=== PATIENT | male | born 1965 | race Caucasian/White ===

== ENCOUNTER 2020-11-09 16:38 | Inpatient (IN) | payer BC, MEDICARE ==
[~2020-11-09] VITALS: Ht 182.9 cm; Wt 106.7 kg
[~2020-11-09 16:38] MED LIST: ACET300T4; BACL10TA PO; GABA300C; MORP60TA
[2020-11-09] MEDS ORDERED: MORPHINE SULFATE 4 MG/ML SYR/VIAL IV ONE (17:00)
[2020-11-09] MEDS ORDERED: ONDANSETRON HCL 4 MG/2 ML VIAL IV ONE (17:00)
[2020-11-09 18:04] LABS: Basophils # (auto) 0.1 10 ^3/uL (0-0.2); Basophils % (auto) 0.7 % (0.0-2.0); Eosinophils # (auto) 0.1 10 ^3/uL (0-0.8); Eosinophils % (auto) 0.9 % (0.0-7.0); Hematocrit 42.3 % (41.0-53.0); Lymphocytes # (auto) 2.5 10 ^3/uL (0.4-5.4); Lymphocytes % (auto) 23.8 % (10.0-50.0); Mean Corpuscular Hgb Conc. 35.5 g/dL (32.0-36.0); Mean Corpuscular Volume 90.2 fL (80.0-100.0); Monocytes # (auto) 0.5 10 ^3/uL (0-1.3); Monocytes % (auto) 4.8 % (0.0-12.0); Neutrophils # (auto) 7.2 10 ^3/uL (1.6-8.6); Neutrophils % (auto) 69.8 % (37.0-80.0); Nucleated Red Blood Cells % 0.1 %; Platelet Count (auto) 297 10^3/uL (140-450); Red Blood Cells 4.69 10^6/uL (4.5-5.90); Red Cell Distribution Width 12.5 % (11.8-14.3); White Blood Cell 10.4 10^3/uL (4.4-10.8)
[2020-11-09 18:26] LABS: Albumin 4.4 g/dL (3.4-5.0); Anion Gap 8 (5-15); Blood Urea Nitrogen 11 mg/dL (7-18); Calcium 9.7 mg/dL (8.5-10.1); Carbon Dioxide 25 mmol/L (21-32); Chloride 108 mmol/L (98-107); Glucose 91 mg/dL (74-106); Potassium 3.5 mmol/L (3.5-5.1); Sodium 141 mmol/L (136-145)
[2020-11-09 18:31] LABS: Alanine Aminotransferase 29 U/L (16-61); Alkaline Phosphatase 72 U/L (45-117); Aspartate Aminotransferase 19 U/L (15-37); BUN/Creatinine Ratio 14.3; Bilirubin, Total 0.6 mg/dL (0.2-1.0); GFR African American 136 mL/min; GFR Non-African American 112 mL/min; Total Protein 8.1 g/dL (6.4-8.2)
[2020-11-09] MEDS ORDERED: ACETAMINOPHEN 325 MG TAB PO PRN (21:15)
[2020-11-09] MEDS ORDERED: ONDANSETRON HCL 4 MG/2 ML VIAL IV PRN (21:15)
[2020-11-09] MEDS ORDERED: TEMAZEPAM 15 MG CAP PO PRN (21:15)
[2020-11-09] MEDS ORDERED: NITROGLYCERIN 0.4 MG SL TAB SL PRN (21:15)
[2020-11-09] MEDS ORDERED: ATORVASTATIN 20 MG TAB PO SCH (22:00)
[2020-11-09] MEDS: FAMOTIDINE 20 MG TAB PO SCH (22:13)
[2020-11-09] MEDS: BACLOFEN 10 MG TAB PO SCH (22:13)
[2020-11-09] MEDS: GABAPENTIN 300 MG CAP PO SCH (22:13)
[2020-11-09] MEDS: HYDROcodone-ACET 10/325MG TAB PO PRN (22:42)
[2020-11-10] MEDS: HYDROcodone-ACET 10/325MG TAB PO PRN ×3 (05:46→18:27)
[2020-11-10] MEDS: BACLOFEN 10 MG TAB PO SCH ×3 (05:46→20:50)
[2020-11-10] MEDS: GABAPENTIN 300 MG CAP PO SCH ×3 (05:46→20:48)
[2020-11-10] MEDS ORDERED: POTASSIUM CHL 20 Meq TABLET PO ONE (07:45)
[2020-11-10] MEDS ORDERED: CALCIUM GLUC 4.65meq/50ml D5AE 50 ML IV ONE (07:45)
[2020-11-10 07:59] LABS: Basophils # (auto) 0 10 ^3/uL (0-0.2); Basophils % (auto) 0.7 % (0.0-2.0); Eosinophils # (auto) 0.1 10 ^3/uL (0-0.8); Hematocrit 39.9 % (41.0-53.0); Hemoglobin 13.8 g/dL (13.5-17.5); Lymphocytes # (auto) 2.1 10 ^3/uL (0.4-5.4); Lymphocytes % (auto) 31.6 % (10.0-50.0); Mean Corpuscular Hemoglobin 31.5 pg (28.0-32.0); Mean Corpuscular Hgb Conc. 34.7 g/dL (32.0-36.0); Mean Corpuscular Volume 90.9 fL (80.0-100.0); Monocytes # (auto) 0.4 10 ^3/uL (0-1.3); Monocytes % (auto) 5.8 % (0.0-12.0); Neutrophils # (auto) 3.9 10 ^3/uL (1.6-8.6); Neutrophils % (auto) 59.9 % (37.0-80.0); Platelet Count (auto) 242 10^3/uL (140-450); Red Blood Cells 4.39 10^6/uL (4.5-5.90); Red Cell Distribution Width 12.6 % (11.8-14.3); White Blood Cell 6.6 10^3/uL (4.4-10.8)
[2020-11-10 08:17] LABS: Albumin 3.6 g/dL (3.4-5.0); Calcium 9.1 mg/dL (8.5-10.1); Potassium 3.8 mmol/L (3.5-5.1)
[2020-11-10 08:21] LABS: BUN/Creatinine Ratio 18.7; Bilirubin, Total 0.7 mg/dL (0.2-1.0); Total Protein 6.9 g/dL (6.4-8.2)
[2020-11-10] MEDS ORDERED: ADENOSINE 88 MG in GIVE UN-DILUTED 0 ML IV STA (08:25)
[2020-11-10] MEDS: FAMOTIDINE 20 MG TAB PO SCH ×2 (09:25→20:48)
[2020-11-10] MEDS: ASPirin 81 mg TAB PO SCH (09:25)
[2020-11-10 10:42] LABS: Magnesium 2.4 mg/dL (1.6-2.6)
[2020-11-10 11:08] VITALS: BP 119/66
[2020-11-10] MEDS ORDERED: FENT100D2 TD (14:47)
[2020-11-10 18:30] VITALS: BP 124/73
[2020-11-10] MEDS ORDERED: ATORVASTATIN 20 MG TAB PO SCH (22:00)
[2020-11-10 22:21] VITALS: BP 93/56
[2020-11-11] MEDS: HYDROcodone-ACET 10/325MG TAB PO PRN ×2 (02:00→09:31)
[2020-11-11 04:54] VITALS: BP 109/69
[2020-11-11] MEDS: BACLOFEN 10 MG TAB PO SCH ×2 (05:30→13:57)
[2020-11-11] MEDS: GABAPENTIN 300 MG CAP PO SCH ×2 (05:30→13:57)
[2020-11-11 08:00] VITALS: BP 120/75
[2020-11-11 08:30] VITALS: BP 120/75
[2020-11-11] MEDS: ASPirin 81 mg TAB PO SCH (09:30)
[2020-11-11] MEDS: FAMOTIDINE 20 MG TAB PO SCH (09:30)
[2020-11-11] MEDS ORDERED: ATOR20TA50 PO (10:15)
[2020-11-11] MEDS ORDERED: ASPI1CHW15 PO (10:15)
[2020-11-11] MEDS ORDERED: fentaNYL 100MCG/HR 100 MCG/HR PAT TD ONE (10:30)
[2020-11-11 12:00] VITALS: BP 127/97
[2020-11-11 12:48] VITALS: BP 127/97
== END 2020-11-11 14:30 | disposition home or self-care (01) | DRG 313 ==
LOC: ER 16:38 → TELE 16:39 → TELE-CENTR 11-10 16:46
PROVIDERS: ADMIT Nurse Practitioner; ATTEND Internal Medicine
DX: R07.89 Other chest pain (principal); F11.20 Opioid dependence, uncomplicated; I20.0 Unstable angina; E66.9 Obesity, unspecified; E78.5 Hyperlipidemia, unspecified; G89.29 Other chronic pain; I10 Essential (primary) hypertension; R73.9 Hyperglycemia, unspecified; R73.03 Prediabetes; Z20.822 Contact with and (suspected) exposure to COVID-19; Z82.49 Family history of ischemic heart disease and other diseases of the circulatory system; Z83.3 Family history of diabetes mellitus; Z87.442 Personal history of urinary calculi
CPT/HCPCS: 36415; 71045; 78452; 80053; 80061; 83036; 83735; 83880; 84443; 84484; 85025; 85379; 87426; 93005; 93017; 93306; 96374; 96375; 96376; G0378; J0153; J2405